=== PATIENT | female | born 1935 | race Caucasian/White ===

== ENCOUNTER → 2016-07-10 | Outpatient (CLI) | payer MEDICARE, OTHER ==
--- NOTE | ~2016-07-10 | BD1 ---
[facility] A Service of [facility] & [facility] RADIOLOGY TEXT RESULTS PATIENT: GLADIS SALES LOCATION: [facility] : 34 UNIT #: [id number] AGE: [address]: Joaquin Garcia MD SEX: F ORDER DR: [id number] [facility] [address] [place], [place] [address] [id number] O MR#: [id number] Acc #: [id number] NAME: GLADIS SALES : 1935 SEX: F STUDY DATE/TIME: 07/10/2016 12:09 UNIT: [facility] ROOM: STUDY DESCRIPTION: BD Dexa Bone Dens 1+ Site Attending Physician: Joaquin Garcia Jr., M.D. Referring Physician: Joaquin Garcia Jr., M.D. Ordering Physician: Joaquin Garcia Jr., M.D. Primary Care Physician: Joaquin Garcia Jr., M.D. MEDICAL IMAGING REPORT This report is preliminary unless electronic signature is present EXAM DXA scan 07/10/2016 HISTORY Status post menopause with no hormone replacement therapy. Osteopenia. FINDINGS Bone mineral density in the lumbar spine from L1-L4 is 0.976 g/cm2 which is 0.6 standard deviations below the mean when compared to the young adult reference population which is within the range of normal. This is 2.1 standard deviations above the mean when compared to the age-matched population. Compared with 04/05/2014 there has been an increase in bone mineral density in the lumbar spine of 2%. Bone mineral density in the left hip was 0.659 g/cm2 which is 2.3 standard deviations below the mean when compared to the young adult reference population which is characteristic of osteopenia. This is 0.1 standard deviations below the mean when compared to the age-matched population. Compared with 04/05/2014 there has been a decrease in bone mineral density in the left hip of 7.3%. IMPRESSION Bone mineral density in the lumbar spine within the range of normal and within the left hip characteristic of osteopenia. Compared with 04/05/2014 there has been an increase in bone mineral density in the lumbar spine and a decrease in bone mineral density in the left hip. Dictated by... Stewart Rojas M.D. THIS IS AN ELECTRONICALLY VERIFIED REPORT Stewart Rojas M.D. at 07/11/2016 2:54 PM KRT/rnr [facility] A Service of [facility] & [facility] RADIOLOGY TEXT RESULTS PATIENT: GLADIS SALES LOCATION: [facility] : 34 UNIT #: [id number] AGE: [address]: Joaquin Garcia MD SEX: F ORDER DR: TD: 07/10/2016 18:03 JOB #: [id number] MEDICAL IMAGING REPORT COPY
--- NOTE | ~2016-07-10 | MY11 ---
[facility] A Service of [facility] RADIOLOGY TEXT RESULTS PATIENT: GLADIS SALES LOCATION: [facility] : 34 UNIT #: [id number] AGE: [address]: Joaquin Garcia MD SEX: F ORDER DR: [id number] [facility] [address] [place], [place] [address] [id number] O MR#: [id number] Acc #: [id number] NAME: GLADIS SALES : 1935 SEX: F STUDY DATE/TIME: 07/10/2016 12:33 UNIT: [facility] ROOM: STUDY DESCRIPTION: MY Mammogram Screening Dig Catalino Attending Physician: Joaquin Garcia Jr., M.D. Referring Physician: Joaquin Garcia Jr., M.D. Ordering Physician: Joaquin Garcia Jr., M.D. Primary Care Physician: Joaquin Garcia Jr., M.D. MEDICAL IMAGING REPORT This report is preliminary unless electronic signature is present EXAM Bilateral digital screening mammogram with CAD. INDICATION Breast cancer screening. 81-year-old asymptomatic female. No personal or family history of breast cancer. COMPARISONS April 06, 2015, April 05, 2014, December 04, 2011, and December 23, 2008. FINDINGS There are scattered fibroglandular tissues. No suspicious findings are present. IMPRESSION No mammographic evidence of malignancy. Annual screening mammography is recommend for as long as the patient is in good health ([employer]). A result letter will be sent to the patient. Patients over the age of 40 are entered into a reminder system with target due date for the next mammogram. BIRADS: 1 Negative Dictated by... Eduard Gurrola M.D. THIS IS AN ELECTRONICALLY VERIFIED REPORT Eduard Gurrola M.D. at 07/13/2016 6:44 PM [facility]/tmw [facility] A Service of [facility] RADIOLOGY TEXT RESULTS PATIENT: GLADIS SALES LOCATION: [facility] : 34 UNIT #: [id number] AGE: [address]: Joaquin Garcia MD SEX: F ORDER DR: TD: 07/10/2016 17:20 JOB #: [id number] MEDICAL IMAGING REPORT COPY
== END | disposition home or self-care (01) ==
LOC: CWCC 11:30
DX: Z12.31 Encounter for screening mammogram for malignant neoplasm of breast (principal); Z78.0 Asymptomatic menopausal state; M85.88 Other specified disorders of bone density and structure, other site
CPT/HCPCS: 77080; G0202